=== PATIENT | female | born 1955 | race Caucasian/White ===

== ENCOUNTER 2017-07-04 06:29 | Inpatient (IN) | payer BC ==
[2017-06-08 10:26] VITALS: BMI 31.0
--- NOTE | 2017-06-08 11:00 | PAT Medication Instructions ---
Service Date Jun 08, 2017. Current Home Medication List Amlodipine (Norvasc), 5 MG PO QAM Dextromethorphan-Guaifenesin (Mucinex Dm), 1 TAB PO Q12 PRN for sinus congestion Doxazosin Mesylate (Doxazosin Mesylate), 2 MG PO QPM Multiple Vitamins W/ Minerals (Womens Multi), 1 CAP PO QPM Medication Instructions For Your Scheduled Surgery - Hold the following medications the morning of surgery: Dextromethorphan-Guaifenesin (Mucinex Dm), 1 TAB PO Q12 PRN for sinus congestion - Take the following medications the morning of surgery with a sip of water OTHERWISE NOTHING TO EAT OR DRINK AFTER MIDNIGHT: Amlodipine (Norvasc), 5 MG PO QAM - Take the following medications as scheduled the night before surgery: Doxazosin Mesylate (Doxazosin Mesylate), 2 MG PO QPM Multiple Vitamins W/ Minerals (Womens Multi), 1 CAP PO QPM Dextromethorphan-Guaifenesin (Mucinex Dm), 1 TAB PO Q12 PRN for sinus congestion If you have any questions please call us at [phone] or [phone] or [phone]
--- NOTE | 2017-06-08 11:22 | DIAGNOSTIC IMAGING REPORT ---
TWO VIEW CHEST CLINICAL HISTORY: Preoperative examination. FINDINGS: PA and lateral chest radiographs are obtained. No prior studies are available for comparison at the time of dictation. The cardiomediastinal silhouette is unremarkable. There is minimal bibasilar atelectasis. The lungs and pleural spaces are otherwise clear. There is no pneumothorax. The skeletal structures are osteopenic. Degenerative change and scoliosis are noted in the thoracic spine. Surgical clips are seen in the upper abdomen. IMPRESSION: No active disease in the chest. Electronically signed by: Sanya Vargas M.D. 06/08/2017 11:21 AM Dictated Date/Time: 06/08/2017 11:20 AM
[2017-06-08 11:28] LABS: BASO % 0.6 %; BASO ABS # 0.03 K/uL (0-0.2); EOS % 1.8 %; HEMATOCRIT 44.8 % (37-47); HEMOGLOBIN 15.4 g/dL (12.0-16.0); IG# 0.01 K/uL (0.00-0.02); LYMPH % 30.7 %; LYMPH ABS # 1.67 K/uL (1.2-3.4); MEAN CELL VOLUME 89.8 fL (80-100); MEAN CORPUSCULAR HEMOGLOBIN 30.9 pg (25-34); MEAN CORPUSCULAR HGB CONC 34.4 g/dl (32-36); MEAN PLATELET VOLUME 10.8 fL (7.4-10.4); MONO % 6.4 %; MONO ABS # 0.35 K/uL (0.11-0.59); NEUT % 60.3 %; NEUT ABS # 3.28 K/uL (1.4-6.5); PLATELET COUNT 199 K/uL (130-400); RED CELL DISTRIBUTION WIDTH CV 13.1 % (11.5-14.5); WHITE BLOOD COUNT 5.44 K/uL (4.8-10.8)
[2017-06-08 11:32] LABS: PTT PATIENT 25.8 SECONDS (21.0-31.0)
[2017-06-08 11:44] LABS: CALCIUM 9.2 mg/dl (8.5-10.1); CREATININE 0.73 mg/dl (0.60-1.20); POTASSIUM 3.9 mmol/L (3.5-5.1)
--- NOTE | 2017-06-19 15:47 | HISTORY & PHYSICAL EXAMINATION ---
DATE OF ADMISSION: 07/04/2017 CHIEF COMPLAINT: Left knee degenerative joint disease. HISTORY OF PRESENT ILLNESS: This 62-year-old white female presented to the office with complaints of left knee pain that has been longstanding. It has been ongoing for several years. It has become worse with time. She currently has to modify her activities of daily living due to the discomfort. She is no longer walking or exercising like she would like. She has tried viscosupplementation, cortisone injections, activity modification, and physical therapy without relief. Pain is primarily medial. Occasional night pain. No numbness or tingling. Preoperative imaging has been obtained. She elects to proceed with total knee arthroplasty in hopes of alleviating her discomfort. PAST MEDICAL HISTORY: Significant for hypertension, elevated lipids, fatty liver disease, obesity, and osteoarthritis. PAST SURGICAL HISTORY: Tonsillectomy, hysterectomy, cholecystectomy. ALLERGIES: NKDA. CURRENT MEDICATIONS: Amlodipine 5 mg p.o. daily, doxazosin 2 mg p.o. daily. SOCIAL HISTORY: The patient is employed. . No tobacco use. Former smoker. Occasional ETOH use. FAMILY HISTORY: Significant for heart disease, stroke, cancer and diabetes. REVIEW OF SYSTEMS: Significant for above stated conditions, otherwise unremarkable. PHYSICAL EXAMINATION: GENERAL: Well-developed, well-nourished, obese middle-aged white female in no acute distress. Sitting on a bed. Alert and oriented. SKIN: Warm and dry with good turgor. No rashes or lesions. No ecchymosis or erythema. HEAD, EYES, EARS, NOSE, AND THROAT: Normocephalic, atraumatic. Eyes PERRLA, EOMI. Nares patent bilaterally without turbinate enlargement. Oropharynx without erythema or exudate. No lesions noted. Uvula midline. Oral mucosa moist. Fair dentition. Dental caps and fillings are noted. HEART: RRR. No MGR. LUNGS: Clear to auscultation bilaterally. No crackles, rhonchi or wheezing. Good air movement. ABDOMEN: Obese. Bowel sounds present x4, soft, nontender. No organomegaly. No masses. MUSCULOSKELETAL: Left knee has no intraarticular effusion. She has loss of approximately 3-5 degrees of terminal extension. Flexion to greater than 100 degrees. Strength is 5/5 with fair quad tone. Stable collateral ligaments. Focal discomfort with palpation over the medial joint line. No lateral joint line discomfort today. She has significant patellofemoral discomfort. There is crepitus palpable with motion. Intact motor function to her ankle. Ambulatory with an antalgic gait. NEUROLOGIC: Gross sensation is intact across the lower extremities via soft touch. Cranial nerves II-XII are intact. DATA: Radiographic imaging previously obtained shows significant patellofemoral degenerative changes. She is bone on bone. Periarticular osteophytes and subchondral sclerosis are also present. IMPRESSION: Left knee degenerative joint disease. PLAN: Medical clearance has been requested from her PCP, Dr. Sarmiento. Postoperative prescriptions for Percocet and Coumadin will be provided at discharge from the hospital. Anticipate discharge to home with 2 weeks of home health services and then outpatient PT. She believes she already has a walker and will bring it with her at the time of surgery. Preoperative lab work, EKG, and chest x-ray have been ordered.
[~2017-07-04] VITALS: Ht 157.5 cm; Wt 77.5 kg
[2017-07-04] VITALS (11 sets, daily range): BP systolic 97–133; BP diastolic 55–91; PULSE 45–88; TEMP 36.4–37.3; O2SAT 93–97; Ht 157.5 cm; Wt 77.5 kg
[~2017-07-04 06:29] MED LIST: AMLO-110 PO; CEFAZOLIN 2000MG IV PUSH 10 ML IV SCH; CRD4 PO; DEXAMETHASONE 4 MG TAB PO SCH; DEXT30TA7 PO; LACTATED RINGER'S 1000ML 1,000 ML IV SCH; LACTATED RINGER'S 1000ML 500 ML IV SCH; LACTATED RINGER'S 1000ML IV SCH; MULT1CAP3 PO; ROPIVACAINE 5MG/ML 30 ML 150 MG, BUPIVACAINE/EPINEPHR 0.5% MPF 30 ML, KETOROLAC TROMETH... INFIL SCH; TRANEXAMIC ACID INJ 1,000 MG in SYRINGE 0 ML IV SCH
[2017-07-04] MEDS ORDERED: BUPIVACAINE 0.25% 30 ML VIAL ONE (06:35)
[2017-07-04] MEDS ORDERED: BUPIVACAINE 0.5 % 5 MG/1 ML PF 10ML VIAL ONE (06:35)
--- NOTE | 2017-07-04 06:40 | History & Physical Bridge Note ---
H&P Re-Evaluation Bridge Note: I have examined the patient, reviewed the History & Physical and in the interval since the performance of the History & Physical I have noted the following changes of clinical significance: consent updated ;patient had no questions .No changes noted
[2017-07-04] MEDS ORDERED: EpINEphrine INJ 1MG/ML AMP 1 MG/ML AMP ONE (07:10)
[2017-07-04] MEDS ORDERED: DEXAMETHASONE SOD INJ 4 MG/ML VIAL ONE (07:11)
[2017-07-04] MEDS ORDERED: LIDOCAINE HCL 2% 2 ML VIAL (20MG/ML) ONE (07:57)
[2017-07-04] MEDS ORDERED: ONDANSETRON INJ 2 MG/ML 2 ML VIAL ONE (07:57)
[2017-07-04] MEDS ORDERED: FENTANYL CITRATE INJ 50 MCG/1 ML 2 ML VIAL ONE (07:57)
[2017-07-04] MEDS ORDERED: PROPOFOL IV EMULSION 10 MG/ML 20 ML VIAL IV ONE (07:57)
[2017-07-04] MEDS ORDERED: MIDAZOLAM HCL 1 MG/ML 2ML VIAL ONE (07:57)
[2017-07-04] MEDS ORDERED: FENTANYL CITRATE INJ 50 MCG/1 ML 2 ML VIAL IV PRN (08:30)
[2017-07-04] MEDS ORDERED: ATROPINE SULFATE 0.1 MG/ML 5ML SYR IV PRN (08:30)
[2017-07-04] MEDS ORDERED: ONDANSETRON INJ 2 MG/ML 2 ML VIAL IV PRN ×2 (08:30→11:00)
[2017-07-04] MEDS ORDERED: EpHEDrine SULFATE INJ 50 MG/ML AMP IV PRN (08:30)
[2017-07-04] MEDS ORDERED: PROMETHAZINE HCL INJ 6.25 MG in SODIUM CHLORIDE 0.9% 50ML 50 ML IV PRN (08:30)
[2017-07-04] MEDS ORDERED: POVIDONE-IODINE OP SOLN 30 ML BTL ONE (08:39)
[2017-07-04] MEDS ORDERED: ORTHO JOINT ANESTHETIC ONE (08:39)
[2017-07-04] MEDS ORDERED: EpHEDrine SULFATE 50MG/5ML SYR ONE (09:32)
[2017-07-04] MEDS ORDERED: CEFAZOLIN SOD 1 GM VIAL ONE (09:32)
[2017-07-04] MEDS ORDERED: PHENYLEPHRINE 100MCG/ML 5ML SYR ONE (10:32)
--- NOTE | 2017-07-04 10:43 | [facility] Post Operative Brief Note ---
Immediate Operative Summary Operative Date Jul 04, 2017. Pre-Operative Diagnosis Left Knee Degenerative Joint Disease Post-Operative Diagnosis Same as preop Procedure(s) Performed Left Total Knee Arthroplasty Surgeon Dr. Raygoza Superintendent Car Construction Surgeon(s) Tommy Greer PA-C, Anup Gómez Fellow Estimated Blood Loss 150 ml Findings Consistent with Post-Op Diagnosis Fluids (cc crystalloids) 1500cc Specimens A. Left Knee Bone and Tissue Drains None Anesthesia Type General Complication(s) none Disposition Disposition: Recovery Room / PACU
[2017-07-04] MEDS ORDERED: MAGNESIUM HYDROXIDE SUSP 30 ML UDC PO PRN (11:00)
[2017-07-04] MEDS ORDERED: ACETAMINOPHEN 325 MG TAB PO PRN (11:00)
[2017-07-04] MEDS ORDERED: DiphenhydrAMINE HCL 50 MG/ML VIAL IV PRN (11:00)
[2017-07-04] MEDS ORDERED: ALUMINUM/MAGNESIUM/SIMETH (MAALOX MAX) 30 ML UDC PO PRN (11:00)
[2017-07-04] MEDS ORDERED: BISACODYL 10 MG SUPP PR PRN (11:00)
[2017-07-04] MEDS ORDERED: OXYCODONE HCL IR 5 MG TAB (IMMEDIATE RELEASE) PO PRN (11:00)
[2017-07-04] MEDS ORDERED: MoRPHine SULFATE 2 MG/ML CARP IV PRN (11:00)
[2017-07-04] MEDS ORDERED: ACETAMINOPHEN IV 100 ML IV PRN (11:00)
[2017-07-04] MEDS ORDERED: METOCLOPRAMIDE HCL INJ 5 MG/ML 2 ML VIAL IV PRN (11:00)
--- NOTE | 2017-07-04 11:02 | OPERATIVE REPORT ---
DATE OF OPERATION: 07/04/2017 SURGEON: Ernique Raygoza MD. CUSTOMER SERVICE DISPATCHER: Rico. SECOND CUSTOMER SERVICE DISPATCHER: Tommy Greer PA-C. PREOPERATIVE DIAGNOSIS: Osteoarthritis, left knee with patellofemoral instability. POSTOPERATIVE DIAGNOSIS: Same. OPERATION PERFORMED: Left cemented total knee replacement. DESCRIPTION OF THE PROCEDURE: The patient appropriately identified, site verified, consent verified, 2 grams of Ancef confirmed as being given. The left lower extremity was prepped and draped in usual routine fashion. Tourniquet was inflated to 300 mmHg for a total of 54 minutes. Midline exposure was utilized. Parapatellar arthrotomy performed. Synovectomy completed. Patellofemoral joint was completely unstable. The trochlea was actually convex instead of concave and the patella was effaced and eroded. Osteophytes were all resected. Synovectomy completed. Distal femur then entered. The cruciates then resected. Tibia able to be subluxated. Distal femur resected to 14 mm. Proximal tibia resected to 4 mm. The extension gap was excellent. The femur was then sized between a 4 and 3, was measured at 4 and cut 3. There was no notching. The flexion gap was excellent. The extension gap was excellent. The box cut was then made with care taken to make sure the femur was lateralized due to her maltracking. The size 3 femur fit well. The tibia was then broached and reamed to a size 3, which covered virtually 95% of the tibia. Size 10 spacer gave good stability in extension and flexion in mid range flexion. The patella tracked well. The patella was then resected leaving 16 mm and a 35 mm peg trial placed and tracked well. The knee was then injected with the Orthomix. All trial implants were then removed. The knee was then irrigated with Betadine, Pulsavac and then the permanents cemented into position. After 12 minutes, the tourniquet deflated. Minor bleeding points controlled with the electrocautery. There was little bit more bleeding than typical from the posterior side so it was elected to remove the spacer. Looked back there, there was nothing identified. The wound was then irrigated with Betadine and then the permanent spacer seated and the knee reduced. No major bleeding encountered. The wound was then closed with #1 Ethibond, #1 Vicryl, 2-0 Vicryl and stainless steel clips. Appropriate dressing was applied in addition to Clint Harris dressing. The patient was then transferred to recovery room in satisfactory condition having tolerated the procedure well. ESTIMATED BLOOD LOSS: 150 mL. CRYSTALLOID: 1500 mL. SUMMARY OF IMPLANTS: Size 3 posterior cruciate substituting femur size 3, rotating tibial keel platform size 35, oval dome 3 peg patella, tibial insert size 3, 10 mm thick posterior cruciate substituting stabilized. Two bags of Palacos G cement. DVT prophylaxis with Coumadin. I attest to the content of the Intraoperative Record and any orders documented therein. Any exception s are noted below.
--- NOTE | 2017-07-04 11:09 | [facility] Operative Report ---
Operative Report Operative Date Jul 04, 2017. Pre-Operative Diagnosis Left Knee Degenerative Joint Disease Post-Operative Diagnosis Same as preop Procedure(s) Performed Left Total Knee Arthroplasty Surgeon Dr. Raygoaz Care Management Assistant Surgeon(s) Tommy Greer PA-C, Anup Gómez Fellow Estimated Blood Loss 150 ml Findings Left knee DJD Fluids 1500cc Specimens A. Left Knee Bone and Tissue Drains none Anesthesia spinal and general Complication(s) None Disposition Recovery Room / PACU Indications This 62-year-old white female presented to the office with complaints of intractable right knee pain. She had tried conservative care measures without success. Pain was worse with weight-bearing and was affecting her ADLs. She elected to proceed with surgical intervention after being educated about potential risks and outcomes. Preoperative imaging was obtained. Description of Procedure Patient was taken to the operating room after administration of spinal anesthetic. She was then given general anesthesia due to an ineffective spinal. She was prepped and draped in usual sterile fashion. Please see Dr. Raygoza's operative report for specifics of the procedure. I was present for the entire case from initial patient positioning through final wound closure. Assistance was provided in tissue traction, hemostasis, trial implant placement, final implant placement, and final wound closure. Patient was taken to the recovery room in satisfactory condition. I attest to the content of the Intraoperative Record and any orders documented therein. Any exceptions are noted below.
--- NOTE | 2017-07-04 11:28 | DIAGNOSTIC IMAGING REPORT ---
LEFT KNEE 2 VIEWS History: Left total knee arthroplasty. Degenerative arthritis. Postop. FINDINGS: The patient is status post a left total knee arthroplasty. The hardware is intact. No fracture or dislocation. Skin mayur are in place. IMPRESSION: Left total knee arthroplasty. No evidence for hardware complication. Electronically signed by: Emmanuel Bearden M.D. 07/04/2017 11:27 AM Dictated Date/Time: 07/04/2017 11:25 AM
--- NOTE | 2017-07-04 11:36 | PROGRESS NOTE ---
DATE: 07/04/2017 SUBJECTIVE: Postop check status post left total knee replacement. The patient seen in recovery room. She is awake and alert. She is eating ice chips. She denies chest pain, shortness of breath, fever, chills, nausea, vomiting or headache. OBJECTIVE: VITAL SIGNS: Stable. She is afebrile. NEUROVASCULAR: Check femoral sciatic nerve is intact. EXTREMITIES: Wound dressing clean, dry and intact. IMAGING: Postop x-rays, AP and lateral of the left knee reveals well fixed, well aligned knee replacement. ASSESSMENT: Doing well status post left total knee. Continue with care pathway.
--- NOTE | 2017-07-04 11:50 | Anesthesiology Progress Note ---
Anesthesia Post Op Note Date & Time Jul 04, 2017 at 11:47 Vital Signs Pain Intensity: 0 Vital Signs Past 12 Hours Date Time Temp Pulse Resp B/P (MAP) Pulse Ox O2 Delivery O2 Flow Rate FiO2 07/04/17 11:25 83 20 114/74 96 Nasal Cannula 2 07/04/17 11:15 36.7 83 16 111/54 95 Nasal Cannula 2 07/04/17 11:05 75 14 116/64 96 Nasal Cannula 2 07/04/17 10:55 76 18 117/71 96 Oxymask 5 07/04/17 10:46 36.7 87 14 113/69 97 Oxymask 5 07/04/17 07:12 36.5 79 18 133/91 97 Room Air Notes Mental Status: alert / awake / arousable, participated in evaluation Pt Amnestic to Procedure: Yes Nausea / Vomiting: adequately controlled Pain: adequately controlled Airway Patency, RR, SpO2: stable & adequate BP & HR: stable & adequate Hydration State: stable & adequate Neuraxial Anesthesia: was administered, sensory block is resolving Anesthetic Complications: no major complications apparent Patient was placed under general anesthesia as block was insufficient on surgical side, still had some motor function in OR. She was placed under GA with an LMA for procedure. She had no pain on emergence and required no additional narcotics intraoperative or in pacu. Sensory block was resolving at the time of pacu discharge.
[2017-07-04] MEDS ORDERED: MoRPHine SULFATE 4 MG/ML 1 ML CARP\\VIAL IV PRN (12:45)
[2017-07-04] MEDS ORDERED: D5W AND 1/2NSS + 20MEQ KCL 1,000 ML IV SCH (13:00)
[2017-07-04] MEDS ORDERED: OXYC-57 PO (13:22)
[2017-07-04] MEDS ORDERED: WARF2TAB PO (13:22)
[2017-07-04] MEDS ORDERED: CEFAZOLIN IV 1,000 MG in DEXTROSE 5% 50ML 50 ML IV SCH (14:00)
[2017-07-04] MEDS ORDERED: WARFARIN SOD 5 MG TAB PO ONE (16:00)
[2017-07-04] MEDS ORDERED: TRANEXAMIC ACID INJ 1,000 MG in SODIUM CHLORIDE 0.9% 100ML 100 ML IV SCH (17:00)
[2017-07-04] MEDS: FERROUS GLUCONATE 324 MG TAB PO SCH (17:11)
[2017-07-04] MEDS ORDERED: CEFAZOLIN IV 1,000 MG in SYRINGE 0 ML IV SCH (18:00)
[2017-07-04] MEDS: KETOROLAC TROMETHAMINE 30 MG/ML VIAL IV. SCH ×2 (18:51→23:54)
[2017-07-04] MEDS ORDERED: DOXAZosin MESYLATE TAB 2 MG TAB PO SCH (21:00)
[2017-07-04] MEDS: DOCUSATE SODIUM 100 MG CAP PO SCH (21:46)
[2017-07-05 03:22] VITALS: BP 92/52; PULSE 52; TEMP 36.8; O2SAT 96
[2017-07-05] MEDS: KETOROLAC TROMETHAMINE 30 MG/ML VIAL IV. SCH ×2 (06:06→12:20)
--- NOTE | 2017-07-05 07:04 | PROGRESS NOTE ---
DATE: 07/05/2017 SUBJECTIVE: Postop day 1 status post left total knee replacement. The patient has been feeling well. She is happy. She is up walking around. She has no chest pain, shortness of breath, fever, chills, nausea, vomiting or headache. OBJECTIVE: VITAL SIGNS: Stable. She is afebrile. NEUROLOGIC: Neurovascular check left leg is normal. LABORATORY WORK: Pending. ASSESSMENT: Doing well. We will discharge to home today after lunch. Ride will get here somewhere between 1 and 2 p.m. this afternoon. Discharge on 4 mg Coumadin if INR is less than 1.5, 2 mg if greater than 1.5.
--- NOTE | 2017-07-05 07:08 | DISCHARGE SUMMARY ---
CHIEF COMPLAINT: Left knee pain. HISTORY OF PRESENT ILLNESS: The patient underwent elective left total knee replacement. Hospital course has been uneventful. She is ambulatory. She is controlling her pain well. She denies any issues. Denies any review systems problems such as chest pain, shortness of breath, fever, chills, nausea, vomiting or headache. PAST MEDICAL HISTORY: Remarkable for hypertension, elevated lipids, fatty liver disease, obesity and osteoarthritis. PAST SURGICAL HISTORY: Remarkable for tonsillectomy, hysterectomy and cholecystectomy. ALLERGIES: None. PREADMISSION MEDICATIONS: Include amlodipine and doxazosin. Add p.r.n. pain medication, see prescription and Coumadin to keep INR 1.8-2.2. Discharge on 4 mg if INR is less than 1.5 and 2 mg if greater than 1.5. SOCIAL HISTORY: Reveals she is employed. . No tobacco or alcohol use. FAMILY HISTORY: Remarkable for heart disease, stroke, cancer and diabetes. REVIEW OF SYSTEMS: Noncontributory. ASSESSMENT: Status post left total knee replacement. We will discharge today after a.m. PT is somewhere between 1 and 2:00 p.m. this afternoon. Follow up in 2 weeks for staple removal.
[2017-07-05] MEDS: FERROUS GLUCONATE 324 MG TAB PO SCH ×2 (07:21→12:20)
[2017-07-05] MEDS: DOCUSATE SODIUM 100 MG CAP PO SCH (07:21)
[2017-07-05] MEDS ORDERED: DEXAMETHASONE INJ 10 MG in SYRINGE 0 ML IV ONE (07:30)
[2017-07-05 07:50] VITALS: BP 103/64; PULSE 60; TEMP 36.9; O2SAT 93
[2017-07-05 07:52] LABS: HEMATOCRIT 36.9 % (37-47); HEMOGLOBIN 12.4 g/dL (12.0-16.0); MEAN CELL VOLUME 90.9 fL (80-100); MEAN CORPUSCULAR HEMOGLOBIN 30.5 pg (25-34); MEAN CORPUSCULAR HGB CONC 33.6 g/dl (32-36); PLATELET COUNT 177 K/uL (130-400); RED CELL DISTRIBUTION WIDTH CV 13.2 % (11.5-14.5); RED CELL DISTRIBUTION WIDTH SD 43.5 fL (36.4-46.3); WHITE BLOOD COUNT 11.25 K/uL (4.8-10.8)
[2017-07-05 08:02] LABS: INR 1.1 (0.9-1.1)
[2017-07-05 08:23] LABS: CALCIUM 8.8 mg/dl (8.5-10.1); CREATININE 0.71 mg/dl (0.60-1.20); POTASSIUM 4.1 mmol/L (3.5-5.1)
[2017-07-05] MEDS ORDERED: PANTOprazole SOD 40 MG TAB PO SCH (09:00)
[2017-07-05] MEDS ORDERED: MULTIVITAMIN TAB PO SCH (09:00)
[2017-07-05] MEDS ORDERED: AMLODIPINE BESYLATE 5 MG TAB PO SCH (09:00)
[2017-07-05] MEDS ORDERED: HYDR-5688 PO (10:34)
--- NOTE | 2017-07-05 10:34 | Discharge Instructions ---
Discharge Instructions Date of Service Jul 04, 2017. Admission Reason for Admission: Left Knee Osteoarthritis Discharge Discharge Diagnosis / Problem: left knee s/p total knee replacement Discharge Goals Goal(s): Decrease discomfort, Improve function, Increase independence Activity Recommendations Activity Limitations: as noted below Lifting Limitations: gradually increase as tolerated Exercise/Sports Limitations: until after follow-up appointment Shower/Bathe: keep incision dry Driving or Machine Use: No driving until cleared by Dr. Raygoza Weightbearing Status: Left weightbearing (as tolerated) . Instructions / Follow-Up Instructions / Follow-Up New Medicine: * You will likely be taking one or more of these medications: 1. Percocet - Take, as directed, when you need it, every four to six hours to control your pain. 2. Coumadin - Thins your blood to lessen the chance of forming a blood clot. The dose of this is different for each person and is based on your blood tests that are done twice a week. * The most common side effects of pain medicine and iron are nausea and constipation. If nausea or constipation is too much of a problem or if you have any questions about your new medicines or doses, call [facility] at . We will try to help you manage these issues. VERY IMPORTANT TO READ AND REVIEW" Blood Clots and Blood Thinning Medicine: * You are given Coumadin during the immediate post-operative period to lessen the risk of blood clots forming in your legs and/or lungs. Coumadin is usually given for six weeks after surgery. * The prescription is for 2 mg tablets. At discharge, you should understand your dose and take it all at the same time every day, preferably after dinner. * You need to get your blood checked 1 - 2 times per week for six weeks or as directed. * If your dose needs to change, we will call you. Do not take your medication on the day of the blood test until we call you. Pain: * The immediate post-operative period after knee replacement surgery is often quite painful. * You are given a prescription for pain medicine. You should take it, as directed, when you need it, especially before physical therapy and before going to bed. Pain that interferes with sleep is very common and can last several months. * You will likely need pain medicine for the first four to six weeks. It will not stop all of the pain. The pain will lessen and as you feel better, you may change to milder pain medicine such as Tylenol. * The most common side effects of pain medicine are nausea and constipation, so don't take more than you need. Physical Therapy: * You will have physical therapy two or three times each week for four to six weeks after your surgery in order to regain your knee range of motion and to retrain your knee to work properly. * It is just as important to make sure you are getting your knee perfectly straight as it is to regain your knee bend. * Taking a pain pill an hour before therapy can help you have a more productive and comfortable therapy session if needed. Home Exercise: * You were shown a series of exercises (heel props, heel slides, etc.) in the hospital. Do these exercises three to four times each day including the exercises you were shown in physical therapy. Walking: * Get up and walk several times each day. For the first four weeks, try not to stand or walk for more than one hour at a time. If you do stand or walk for more than one hour, you will not hurt anything, but your knee and leg will likely swell. * As you feel comfortable, you may change from the walker or crutches to a cane and then to independent walking. SELF CARE INSTRUCTIONS AFTER TOTAL KNEE REPLACEMENT A. You may need to continue a physical therapy program after discharge from the hospital. There are several options available to you. Your doctor will assist you in selecting the best one for you. 1. An out-patient facility 2 to 3 times a week for therapy or home therapy. 2. Continue working on all exercises taught to you in the hospital. Your goals should be to increase bending of your knee to 90 degrees and beyond and to fully straighten your knee. B. You may progress at your own pace from walking with a walker or crutches to a cane; then to no assistive devices. C. Make walking a part of your daily routine. Be up as much as comfortable with rest periods throughout the day. Rest with leg elevation is very important. Use the ice wrap frequently for the first 3-4 weeks. D. There are no restrictions on activities. You may ride in a car, shop, participate in ring facer and all social activities. E. Wear the long elastic stockings (CAMPOS hose) 20 hours a day for six weeks after surgery. They can be removed several times a day for laundering and for a shower. F. Do not place a pillow behind your knee when resting. A pillow at your ankle is okay. VERY IMPORTANT TO READ AND REVIEW A. Take Coumadin, Aspirin or Lovenox (blood thinning medications) as directed by your doctor. If on Coumadin, have a pro-time (blood test) drawn according to your doctor's instructions. This will tell the doctor how well the Coumadin is thinning your blood. 1. YOU WILL BE GIVEN AN ORDER AT DISCHARGE FOR PT/INR (BLOOD WORK). PLEASE HAVE THIS DONE INSTRUCTED. PLEASE CALL OUR OFFICE AFTER YOUR BLOODWORK IS COMPLETE SO WE CAN TRACK YOUR RESULTS. IF YOU ARE GOING TO OUTPATIENT PHYSICAL THERAPY, YOU WILL NEED TO GO TO OUTPATIENT TESTING TO HAVE IT DRAWN. B. There are a few signs you need to watch for after you are home. Call [facility] if you notice any of the followin. Increased severe knee pain. Some pain is expected especially when you exercise. 2. Increased swelling in your leg or knee; pain or swelling of the calf muscle in either lower leg. 3. Any fluid drainage from the incision. 4. Shortness of breath or chest pain. C. Please call [facility] at if you have any concerns or questions about your operation or recovery. The doctor or his nurse will return your call promptly. D. You must take antibiotics before dental work, bladder, bowel or other surgery. Call the office to obtain a prescription at least 2 days prior to your appointment. * CALL IF INCREASED PAIN, REDNESS, DRAINAGE OR FEVER GREATER THAT 101. * Sutures should be removed 12-14 days after surgery unless you are on chronic steriods, then it will be 14-18 days after surgery. Call your doctor if: * Temperature above 101 degrees F. * Pain not relieved by pain medicine ordered. * Increased drainage or redness from incision. * Notify your doctor with any questions or concerns. Current Hospital Diet Patient's current hospital diet: Regular Diet Discharge Diet Recommended Diet: Regular Diet Procedures Procedures Performed: Left Total Knee Arthroplasty Pending Studies Studies pending at discharge: no Medical Emergencies . Who to Call and When: Medical Emergencies: If at any time you feel your situation is an emergency, please call 911 immediately. . Non-Emergent Contact Non-Emergency issues call your: Primary Care Provider, Surgeon Call Non-Emergent contact if: temperature is above 101, wound has increased drainage, wound has increased redness, wound has increased pain, you have any medication questions . "Provider Documentation" section prepared by Tommy Greer PA-C. . VTE Core Measure Inpt VTE Proph given/why not?: Warfarin (Coumadin), T.E.D. Stockings, SCD's [place] Drug Monitoring Program Search Results: no issues identified
[2017-07-05 10:38] VITALS: BP 119/74
[2017-07-05 13:17] VITALS: BP 119/74; PULSE 60; TEMP 36.9; O2SAT 93
--- NOTE | 2017-07-05 13:42 | Anesthesiology Progress Note ---
Anesthesia Post Op Note Date & Time Jul 05, 2017 at 13:42 Vital Signs Vital Signs Past 12 Hours Date Time Temp Pulse Resp B/P (MAP) Pulse Ox O2 Delivery O2 Flow Rate FiO2 07/05/17 13:17 36.9 60 16 93 Room Air 07/05/17 07:50 36.9 60 16 103/64 (77) 93 Room Air 07/05/17 07:15 Room Air 07/05/17 03:22 36.8 52 16 92/52 (65) 96 Room Air Notes Mental Status: alert / awake / arousable, participated in evaluation Pt Amnestic to Procedure: Yes Nausea / Vomiting: adequately controlled Pain: adequately controlled Airway Patency, RR, SpO2: stable & adequate BP & HR: stable & adequate Hydration State: stable & adequate Neuraxial Anesthesia: was administered, sensory block resolved Anesthetic Complications: no major complications apparent
[2017-07-05] MEDS ORDERED: WARFARIN SOD 5 MG TAB PO SCH (16:00)
== END 2017-07-05 13:57 | disposition home health service (06) | DRG 470 ==
LOC: C.ACU 06:29 → C.3E 06:30 → ENRESERV 11:18
PROVIDERS: ADMIT Physical Medicine & Rehabilitation Sports Medicine; ATTEND Physical Medicine & Rehabilitation Sports Medicine
PROC: 0SRD0J9 Replacement of Left Knee Joint with Synthetic Substitute, Cemented, Open Approach (ICD-10-PCS; principal; 2017-07-04 09:00)
DX: M17.12 Unilateral primary osteoarthritis, left knee (principal); I10 Essential (primary) hypertension; E66.9 Obesity, unspecified; Z68.31 Body mass index [BMI] 31.0-31.9, adult; Z87.891 Personal history of nicotine dependence; Z79.899 Other long term (current) drug therapy

== ENCOUNTER → 2017-08-27 | Outpatient (CLI) | payer BC ==
[~2017-08-27] MED LIST changes: -CEFAZOLIN 2000MG IV PUSH 10 ML IV SCH; -DEXAMETHASONE 4 MG TAB PO SCH; +HYDR-5688 PO; -LACTATED RINGER'S 1000ML 1,000 ML IV SCH; -LACTATED RINGER'S 1000ML 500 ML IV SCH; -LACTATED RINGER'S 1000ML IV SCH; -ROPIVACAINE 5MG/ML 30 ML 150 MG, BUPIVACAINE/EPINEPHR 0.5% MPF 30 ML, KETOROLAC TROMETH... INFIL SCH; -TRANEXAMIC ACID INJ 1,000 MG in SYRINGE 0 ML IV SCH; +WARF2TAB PO
== END | disposition home or self-care (01) ==
LOC: C.RDSM 19:22
PROVIDERS: ATTEND Physical Medicine & Rehabilitation Sports Medicine
DX: M25.562 Pain in left knee (principal)